=== PATIENT | female | born 1955 | race Caucasian/White ===

== ENCOUNTER 2019-07-23 13:39 | Emergency (ER) | payer MEDICAID, SELFPAY ==
[2019-07-23 13:40] VITALS: BP 141/71; PULSE 90; RESP 16; TEMP 36.3
[2019-07-23 13:41] VITALS: BP 141/71; PULSE 90; RESP 16; TEMP 36.3; BMI 22.1
--- NOTE | 2019-07-23 14:53 | ED.VIS.GEN ---
History of Present Illness Chief Complaint: Laceration Informant: Patient Onset: Today Current Severity: Mild Narrative: Left thumb laceration while cutting vegetables with a clean knife tetanus status is up-to-date no other complaints Past Medical History - Allergies and Home Meds Allergies/Adverse Reactions: Allergies cortisone Allergy (Verified 04/29/16 19:23) Other latex Allergy (Verified 04/29/16 19:31) Rash aspartame Adverse Reaction (Verified 04/29/16 19:23) Nausea/Vom/Diarrhea MAPLE Adverse Reaction (Uncoded 04/29/16 19:24) Unknown Primary Care Physician: Abbie Rosario DO [Primary Care Provider] - Past Medical History: - - Denies except as above Surgical History: - - Tubal ligation Smoking Status: Current every day smoker - Family History Maternal Family History: Reports: No pertinent history Paternal Family History: Reports: Stroke Review of Systems General: Denies: Chills, Fever, Sweats Eyes: Denies: Visual changes - bilaterally, Diplopia ENT: Denies: Rhinorrhea, Sore throat Cardiovascular: Denies: Chest pain, Palpitations Respiratory: Denies: Dyspnea, Cough, Dyspnea on exertion Gastrointestinal: Denies: Abdominal pain, Nausea, Vomiting, Diarrhea, Melena, Hematochezia Genitourinary: Denies: Dysuria, Hematuria, Frequency Musculoskeletal: Reports: - - Thumb laceration. Denies: Back pain, Extremity Pain Skin: Denies: Rash, Wounds Neurological: Denies: Headache, Weakness, Numbness Physical Exam Vital Signs/Narrative: Vital Signs Temp Pulse Resp BP 07/23/19 13:41 97.3 F L 90 16 141/71 H 07/23/19 13:40 97.3 F L 90 16 141/71 H General: Well nourished, Well developed, No Acute Distress Head: Normocephalic, Atraumatic Eyes: Perrl, EOMI ENT: Moist mucous membranes, No rhinorrhea Neck: Supple, Nontender Cardiovascular: Regular rate, Regular rhythm, No murmurs Respiratory: No distress, CTA bilaterally, Chest nontender Abdomen: Soft, Nontender, Nondistended, Normal bowel sounds Back: Nontender, Normal Inspection Extremities: Nontender, No edema, - - She has about a 1 cm very superficial laceration over the pincher area of the left thumb thumb pad nailbed are all intact IP joint fully normal full range of motion no other complaints Skin: Normal color, No rash Neurological: Alert, Oriented x3, Cranial nerves II-XII grossly intact, Normal Strength, Normal Sensation Psychological: Normal affect, Normal Mood Diagnostic/Tx/Re-eval - Medical Decision Making Discussed all the above with the patient she asked that the be sutured there is no bleeding the area was sterilely prepped copious irrigated then closed with nylon with good results show structure wound care sutures out in 7 to 10 days clean keep it clean and dry return for change in symptoms Home stable Final impression 1 cm left thumb laceration and suture repaired ED Disposition - Plan for ED Patient: Diagnosis: Thumb laceration Instructions: LACERATION, All, LACERATION, Hand Referrals: Abbie Rosario DO [Primary Care Provider] -
== END 2019-07-23 15:05 | disposition home or self-care (01) ==
PROVIDERS: Emergency Provider Emergency Medicine; Family Provider Family Medicine; PCP Family Medicine
DX: S61.012A Laceration without foreign body of left thumb without damage to nail, initial encounter (principal); W26.0XXA Contact with knife, initial encounter; Y93.G1 Activity, food preparation and clean up; F17.200 Nicotine dependence, unspecified, uncomplicated
CPT/HCPCS: 12001; 99283

== ENCOUNTER 2019-08-01 13:02 | Emergency (ER) | payer MEDICAID, SELFPAY ==
[2019-08-01 13:02] VITALS: BP 124/69; PULSE 102; RESP 18; TEMP 37.7; O2SAT 95; BMI 21.7
--- NOTE | 2019-08-01 14:11 | ED.VISSUMM ---
- ER Visit Summary Date of Service: 08/01/19 Chief Complaint: Suture removal History of Present Illness: The patient is a 64 F who is here for suture removal. On July 22 she had sutures placed in the left thumb when she cut it. She states that she has had [address] There is been no bleeding or drainage. She denies any complications. Physical Examination: Vital signs reviewed. Left hand exam reveals 2 sutures in the thumb. There is no bleeding or drainage. She has full range of motion. Denies any other symptoms. Test Results: None performed Emergency Department Course and Treatment: 2 sutures were removed by myself. No complications. She will follow-up as needed. Treatment Plan: [] Disposition: Discharge Impression: Suture removal This note was generated with [employer] dictation software. It may contain incorrect words, spelling, and punctuation that were not noted in review of the chart prior to signing ED Disposition - Plan for ED Patient: Referrals: Abbie Rosario DO [Primary Care Provider] -
--- NOTE | 2019-08-01 14:13 | ED.DEP ---
ED Disposition - Plan for ED Patient: Disposition: Home or Assisted Living Instructions: SUTURE REMOVAL, No Complication Referrals: Abbie Rosario DO [Primary Care Provider] -
[2019-08-01 14:16] VITALS: PULSE 99; RESP 18; O2SAT 97
== END 2019-08-01 14:33 | disposition home or self-care (01) ==
LOC: ED 14:20
PROVIDERS: Emergency Provider Emergency Medicine; Family Provider Family Medicine; PCP Family Medicine
DX: Z48.02 Encounter for removal of sutures (principal); Z72.0 Tobacco use
CPT/HCPCS: 99282